=== PATIENT | female | born 1935 | race Caucasian/White ===

== ENCOUNTER 2017-12-12 13:31 | Inpatient (IN) | payer MEDICARE ==
[2017-12-12 14:16] LABS: #Eosinphils 0.2 thou/uL (0.0-0.7); #Monocytes 0.7 thou/uL (0.11-0.59); #Neutrophils 6.1 thou/uL (1.40-6.50); %Basophils 0.2 % (0.0-1.0); %Eosinophils 2.1 % (0.0-10.0); %Lymphocytes 12.6 % (21.0-51.0); %Monocytes 8.2 % (0.0-10.0); %Neutrophils 76.9 % (42.0-75.0); Hemoglobin 12.5 g/dL (12.0-16.0); Mean Corpuscular HGB CONC 32.9 g/dL (32.0-36.0); Mean Corpuscular Hemoglobin 29.5 pg (27.0-31.0); Mean Corpuscular Volume 89.6 fL (78.0-98.0); Mean Platelet Volume 9.2 fL (7.4-10.4); Platelet Count 137 thou/uL (130-400); RBC Distribution Width 13.2 % (11.5-14.5); Red Blood Cell (RBC) Count 4.25 mill/uL (4.20-5.40)
[2017-12-12 14:38] LABS: ALT (SGPT) 13 U/L (8-55); AST (SGOT) 16 U/L (5-34); Albumin 3.7 g/dL (3.4-4.8); Alkaline Phosphatase 71 U/L (40-150); Anion Gap 9 mmol/L (10-20); BUN (Urea Nitrogen) 18 mg/dL (9.8-20.1); Bilirubin, Total 0.8 mg/dL (0.2-1.2); Calc. Creatinine Clearance 0 mL/min (70-130); Calcium 8.6 mg/dL (7.8-10.44); Carbon Dioxide 20 mmol/L (23-31); Chloride 117 mmol/L (98-107); Estimated GFR-MDRD 58; Globulin 2.6 g/dL (2.4-3.5); Glucose 114 mg/dL (83-110); Protein, Total 6.3 g/dL (6.0-8.3); Sodium 143 mmol/L (136-145)
[2017-12-12 14:40] LABS: Potassium 2.7 mmol/L (3.5-5.1)
--- NOTE | 2017-12-12 14:46 | RAD ---
LEFT FEMUR TWO VIEWS: History: Fall. Pain. Comparison: None. FINDINGS: There is mild demineralization. No fracture. No cortical irregularity or periosteal reaction. IMPRESSION: Mild bone demineralization. No evidence of fracture. If the patient is unable to bear weight, conside r further interrogation with CT or MRI. POS: [facility]
--- NOTE | 2017-12-12 14:48 | RAD ---
FOUR VIEWS LEFT KNEE: History: Fall. Pain. Comparison: None. FINDINGS: There is diffuse bone demineralization. There is a bone fragement which appears to be adjacent to the medial distal femoral condyle. The possibility of a small avulsive injury cannot be excluded. There is a small suprapatellar effusion. Vascular calcifications are identified. IMPRESSION: Small avulsive injury involving the superior medial aspect of the medial distal femoral condyle. POS: [facility]
--- NOTE | 2017-12-12 14:50 | RAD ---
LEFT FEMUR TWO VIEWS: History: Fall. Pain. Comparison: None. FINDINGS: There is diffuse bone demineralization. Avulsive fracture fragment involving the superomedial aspect of the distal left femur, at the level of the medial femoral condyle. IMPRESSION: Avulsive fracture as above. POS: [facility]
[2017-12-12 14:59] LABS: Bilirubin Negative (Negative); Blood, Urine Negative (Negative); Clarity CLOUDY (Clear); Glucose, Urine (Dipstick) Negative (Negative); Leukocyte Trace (Negative); Nitrite Negative (Negative); Protein, Urine (Dipstick) 30 mg/dL (Neg-Trace); Urobilinogen 0.2 mg/dL (0.2-1.0); pH, Urine 7.5 (5.0-9.0)
[2017-12-12 15:00] LABS: Hyaline Casts/LPF 4-6 HYALINE CAST LPF (0-3 Hyaline); Pathc Cast-AUWi Flag 0.58 (0-2.49); RBC/HPF 0-3 HPF (0-3)
--- NOTE | 2017-12-12 15:00 | RAD ---
ONE VIEW CHEST: COMPARISON: 04/22/2011. HISTORY: Fall. Pain. FINDINGS: Atherosclerosis and elongation of the aorta. Normal cardiac silhouette. The pulmonary vessels and h ilum are normal. Costophrenic angles are clear. Lungs are hyperinflated with chronic changes. No c onsolidation or mass. No pneumothorax. No acute osseous abnormalities. There are chronic changes i nvolving the posterior right ribs. Stable internal fixation hardware projecting over the proximal le ft humerus. Stable vertebroplasty changes. IMPRESSION: Atherosclerosis. No acute cardiopulmonary process. POS: [facility]
[2017-12-12 15:18] LABS: Bacteria/HPF 4+ HPF (None Seen)
[2017-12-12 15:19] LABS: Crystals/HPF 1+ AMORPH PHOS HPF (Negative)
[2017-12-12] MEDS ORDERED: Potassium Chloride 20 MEQ in Premix Bag 1 BAG IVPB SCH (15:30)
--- NOTE | 2017-12-12 15:57 | CT ---
LEFT LOWER EXTREMITY CT SCAN WITHOUT IV COTNRAST: HISTORY: An 82-year-old female with a history of fall, left hip pain. COMPARISON: Left hip plain film, 12/12/2017. FINDINGS: There is diffuse bone demineralization. There is evidence of a very slightly comminuted minimally di splaced fracture through the base of the left femoral neck. IMPRESSION: Essentially nondisplaced very slightly comminuted fracture to the base of the femoral neck with sligh t comminution at the junction of the greater trochanter. Diffuse bone demineralization. No dislocat ion. POS: [facility]
[2017-12-12] MEDS ORDERED: traMADol HCl 50 MG TAB PO PRN (17:38)
[2017-12-12] MEDS ORDERED: Dextrose 50% Abboject 50 ML SYRINGE SLOW IVP PRN (17:38)
[2017-12-12] MEDS ORDERED: Dextrose 5% in Water 1,000 ML IV PRN (17:38)
[2017-12-12] MEDS ORDERED: Ondansetron PF 4 MG/2 ML Vial IVP PRN (17:38)
[2017-12-12] MEDS ORDERED: Sodium Chloride 0.9% 500 ML IV SCH (18:00)
[2017-12-12] MEDS: Acetaminophen 325 MG TAB PO SCH ×2 (19:03→21:55)
[2017-12-12] MEDS: traMADol HCl 50 MG TAB PO SCH (19:04)
[2017-12-12] MEDS: Ibuprofen 600 MG TAB PO SCH (19:04)
[2017-12-12] MEDS ORDERED: Simvastatin 20 MG TAB PO SCH (21:00)
[2017-12-12] MEDS: CEFAZOLIN 1 GM VIAL SLOW IVP SCH (21:43)
[2017-12-12] MEDS: Famotidine 20 MG TAB PO SCH (21:44)
--- NOTE | 2017-12-12 23:33 | HP ---
DATE OF SERVICE: 12/12/2017 Referred by the emergency department. TRAUMA ATTENDING: Dr. Homer Winslow who has evaluated the patient. HISTORY OF PRESENT ILLNESS: Ms. Posey is an 82-year-old female with a past medical history of CVA, essential tremor, bladder cancer with false bladder self caths whom stood up from her chair yesterday felt weak in her knees and fell to the floor. She was found in the morning by her and place d back in the chair and today she continued to have some left hip pain; therefore, she was referred t o the emergency department. In the emergency department, a chest x-ray was ultimately negative. Lef t hip x-ray was reported as negative, so CT hip was obtained that shows a left femoral neck fracture that is nondisplaced. A left knee x-ray shows an avulsion fracture of the distal femur medial side. The patient's pain has been controlled. She was noted to be hypokalemic with a potassium of 2.7. S he has been given 20 of IV and 20 of oral potassium. She is in no acute distress at this time. Dr. Romero with Orthopedic Surgery has been consulted and recommends operative repair in the morning a nd trauma admission. Therefore, the Trauma Service was consulted to admit the patient to the surgery olson. Upon arrival to the emergency department, the patient is lying supine in bed. She has no acute distr ess. She is hard of hearing. She denies any chest pain, shortness of breath, nausea, vomiting, any recent fever or syncope. The patient has a known history of hypokalemia, which she sees her primary care doctor for and they are up taking her potassium recently. The patient's family at the bedside a nd a lot of history is obtained from the family and the patient together. The patient does have some hip pain, but states that she is not needing further medication at this time. Her UA and I have rev iewed is positive for hyaline casts and bacteriuria. She has no feeling in her bladder and she has h ad recurrent UTIs in the past that she does straight catheterization; therefore, somewhat concern for an occult UTI. REVIEW OF SYSTEMS: Pertinent positive and negative per the HPI, otherwise is regarded as negative in 12-point review of systems. PAST MEDICAL HISTORY: 1. 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 2. Essential tremor. 3. 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 PAST SURGICAL HISTORY: A bladder resection, now self cathing; a lung resection secondary to metastas es greater than 10 years ago; and back surgery in the 1980s. ALLERGIES: SULFA. MEDICATIONS: Iron tab daily, Tylenol as needed, aspirin 81 mg daily, topiramate 25 mg as needed, sim vastatin 20 mg daily, docusate daily, potassium 20 mEq daily. FAMILY HISTORY: Noncontributory. SOCIAL HISTORY: The patient was exposed to secondhand smoke for many years, but not a primary smoker . No other tobacco, no alcohol, and no illicit drug use. She lives with her at [facility] but not assisted living. She is able to handle all of her own ADLs. PRIMARY CARE PHYSICIAN: Dr. Del Castillo. UROLOGIST: None. PHYSICAL EXAMINATION: VITAL SIGNS: Temperature is 98.2, blood pressure 165/85, heart rate is 76 and regular, breathing 24 times a minute. She is 95% on room air. GENERAL: This is an 82-year-old female supine in bed in no acute distress. HEENT: Normocephalic, atraumatic. Trachea is midline. NECK: No JVD is appreciated. Conjunctiva is normal. RESPIRATORY: Equal rise and fall. Bilateral breath sounds. Clear to auscultation upper and lower b ilaterally. No rubs or wheezes. CARDIOVASCULAR: Regular rate and rhythm. No murmurs are appreciated. No edema and strong pulses in 4 extremities. ABDOMEN: Soft, nontender. No masses, guarding, or rigidity appreciated. PELVIS: Has some pain to the left side at the hip. MUSCULOSKELETAL: Left hip pain, but positive sensation in 4 extremities including the left hip dista l with strong pulses noted in 4 extremities and no edema. SKIN: [place], warm and dry. NEUROLOGIC: Alert and oriented to person, place, time, and event. She is hard of hearing. PSYCHIATRIC: She is quiet, but normal mood and affect and at the patient's baseline. LABORATORY DATA: UA is positive for protein, positive for bacteriuria and positive for hyaline casts and white blood cells. Chemistry: Sodium is 143, potassium is 2.7, chloride is 117, CO2 is 20, BUN is 18 and a creatinine of 0.92, glucose is 114. Hemoglobin and hematocrit is 12.5 and 38.1, respect ively. White blood cell count 8 and platelets 137. DIAGNOSTIC RADIOLOGY: A left hip x-ray was reported as negative with osteopenia. Chest x-ray is neg ative other than osteopenia noted some scarring in the right without acute infiltrate, effusion or pn eumothorax. Left knee x-ray shows an avulsion fracture of the medial aspect of the distal femur and a left hip CT shows a left femoral neck fracture that is nondisplaced. ASSESSMENT: 1. Left femoral neck fracture. 2. Left distal femur medial avulsion fracture. 3. Hypokalemia. 4. History of cerebrovascular accident. 5. Bacteriuria with concern for urinary tract infection. 6. Possible dehydration. PLAN: 1. The patient will be admitted to the surgery olson. 2. Replace potassium by the emergency department. We will check a magnesium now. 3. Repeat BMP and CBC in the morning. 4. Pain control as needed. 5. Obtain a urine culture. 6. Ancef 1 gram IV push q.8 hours for now for occult UTI. 7. Catheterization as needed for urinary retention. 8. Continue home medication including simvastatin. 9. Orthopedic Surgery has been consulted, appreciate Dr. Romero's recommendations. 10. N.p.o. after midnight. 11. We will give 500 mL of fluid now. 12. Check CK. 13. Normal saline maintenance fluid starting at midnight tonight prior to surgery. 14. Diet: Diet will be regular diet until midnight and then will be n.p.o. except for sips of water for medications. 15. Activity: Bed rest. 16. Prophylaxis: Will be famotidine p.o. SCDs will hold. Chemical DVT prophylaxis until postopera tively. 17. Access for peripheral IVs. 18. FULL CODE. 19. Disposition: Surgery olson. I have updated the patient and the patient's family at the bedside, I have answered all questions and coordinate care with the emergency department physician, the nursing staff and this plan was discuss ed with Dr. Winslow and can be updated as needed.
--- NOTE | 2017-12-12 23:36 | CON ---
DATE OF CONSULTATION: 12/12/2017 CHIEF COMPLAINT: Left hip and knee pain. HISTORY OF PRESENT ILLNESS: Ms. Posey is an 82-year-old female who fell 2 nights ago. She was read ing when she arose to go to bed. She fell to the ground. She was unable to arise. She spent the ni ght on the ground. Her daughter did help her up and watched her for a day; however, she did not impr ove. She was unable to ambulate and unable to bear weight. She was taken to the Emergency [facility] for evaluation. X-rays were obtained, which demonstrated an injury to the medial condyle of her knee. CT scan has demonstrated a femoral neck fracture. She has been admitted to the hospital. She is currently resting comfortably. Pain is decreasing at this point. No other concerns. She no rmally ambulates around the house with a walker, but is somewhat unstable. Her is with her a nd lives with her independently. PAST MEDICAL HISTORY: Bladder cancer, hyperlipidemia, hypercholesterolemia, history of cerebrovascul ar accident. PAST SURGICAL HISTORY: Bladder surgery, lung surgery for tumor resection, oophorectomy. PSYCHIATRIC HISTORY: Negative. SOCIAL HISTORY: The patient denies tobacco, alcohol or drug use. REVIEW OF SYSTEMS: Positive for left hip and knee pain with motion, otherwise negative 10-point revi ew of systems. FAMILY MEDICAL HISTORY: Noncontributory. ALLERGIES: to SULFA. PHYSICAL EXAMINATION: VITAL SIGNS: Blood pressure is 144/102, pulse is 74, respiratory rate 18, temperature is 99.3, oxyge n saturation 96% on room air. GENERAL: She is lying supine, alert, talkative, in no apparent distress. HEENT: Normocephalic, atraumatic. RESPIRATORY: Breathing comfortably. ABDOMEN: Soft and nontender, nondistended. CARDIOVASCULAR: Pulse is palpable and regular peripherally. MUSCULOSKELETAL: The patient's left leg is slightly flexed at the knee. She does have tenderness ov er the medial condyle of the knee as well as a knee effusion, which is significant. She is tender ov er the joint line. She has significant valgus alignment of her knee. She has pain with hip motion a nd unable to do a straight leg raise. She has slight ecchymosis and swelling of the hip. IMAGING: CT scan and hip x-rays are reviewed. These demonstrate a minimally displaced femoral neck fracture and greater trochanteric fracture. It is difficult to see if this fully involves the medial calcar, although it is likely given the position. Knee x-rays demonstrate advanced osteoarthritis w ith valgus collapse and an avulsion from the medial epicondyle. IMPRESSION: Left femoral neck fracture and medial femoral condyle avulsion fracture in an elderly fe male. PLAN: At this point, the patient will need to go to the operating room tomorrow. We will plan for p ercutaneous screw fixation of the femoral neck fracture to stabilize the fracture and allow her to mo bilize with full weightbearing. Goal of surgery is early mobilization to prevent complications of pr olonged bed rest. Her family is aware of risks, which do include medical complications such as myoca rdial infarction, CVA, pneumonia and others as well as musculoskeletal complication including avascul ar necrosis, nonunion, malunion, hardware pain and others. She wants to proceed.
[2017-12-13] MEDS: traMADol HCl 50 MG TAB PO SCH ×5 (00:10→17:02)
[2017-12-13] MEDS: Ibuprofen 600 MG TAB PO SCH ×4 (00:10→18:22)
[2017-12-13] MEDS: Acetaminophen 325 MG TAB PO SCH ×5 (00:50→21:45)
[2017-12-13] MEDS: Sodium Chloride 0.9% 1,000 ML IV SCH ×2 (00:57→16:54)
[2017-12-13 05:24] LABS: #Eosinphils 0.2 thou/uL (0.0-0.7); #Lymphocytes 1.3 thou/uL (1.20-3.40); #Monocytes 0.8 thou/uL (0.11-0.59); %Basophils 0.3 % (0.0-1.0); %Eosinophils 2.6 % (0.0-10.0); %Lymphocytes 17.4 % (21.0-51.0); %Monocytes 10.6 % (0.0-10.0); %Neutrophils 69.2 % (42.0-75.0); Hemoglobin 11.3 g/dL (12.0-16.0); Mean Corpuscular HGB CONC 32.4 g/dL (32.0-36.0); Mean Corpuscular Hemoglobin 29.7 pg (27.0-31.0); Mean Corpuscular Volume 91.8 fL (78.0-98.0); Mean Platelet Volume 9.8 fL (7.4-10.4); Platelet Count 121 thou/uL (130-400); RBC Distribution Width 13.2 % (11.5-14.5); White Blood Cell (WBC) Count 7.3 thou/uL (4.8-10.8)
[2017-12-13 05:36] LABS: Anion Gap 6 mmol/L (10-20); BUN (Urea Nitrogen) 16 mg/dL (9.8-20.1); Calc. Creatinine Clearance 43 mL/min (70-130); Calcium 8.2 mg/dL (7.8-10.44); Carbon Dioxide 17 mmol/L (23-31); Chloride 122 mmol/L (98-107); Estimated GFR-MDRD 69; Glucose 96 mg/dL (83-110); Potassium 4.1 mmol/L (3.5-5.1); Sodium 141 mmol/L (136-145)
[2017-12-13] MEDS: CEFAZOLIN 1 GM VIAL SLOW IVP SCH ×2 (05:38→18:22)
[2017-12-13] MEDS ORDERED: Prevnar 13-Val Conj/PF 0.5 ML SYRINGE IM ONE (09:00)
[2017-12-13] MEDS ORDERED: CEFAZOLIN/Water 2 GM/20 ML SYRINGE SLOW IVP SCH (11:00)
[2017-12-13] MEDS ORDERED: CEFAZOLIN/Water 2 GM/20 ML SYRINGE ONE (13:32)
--- NOTE | 2017-12-13 14:19 | OP ---
DATE OF OPERATION: 12/13/2017 OPERATION: Left femoral neck fracture, percutaneous screw fixation. PREOPERATIVE DIAGNOSIS: Left nondisplaced femoral neck fracture. POSTOPERATIVE DIAGNOSIS: Left nondisplaced femoral neck fracture. COMPLICATIONS: None. ESTIMATED BLOOD LOSS: Minimal. SURGEON: Angelo Romero M.D. ANESTHESIA: General. IMPLANTS: Three 7.3 mm cannulated screws. INDICATIONS: Ms. Posey is an 82-year-old female who fell. She fractured the femoral neck of her le ft hip. She also had a small avulsion from her medial condyle of the knee. She has been indicated f or percutaneous screw fixation to restore stability of the femoral neck to allow early mobilization a nd prevent complications such as displacement or avascular necrosis. Risks have been reviewed in det ail. She has elected to proceed. DESCRIPTION OF PROCEDURE: Ms. Posey was identified in the preoperative holding area. Her correct e xtremity was marked. She was carried to the operating room. She was positioned supine. General ane sthesia was induced. A multidisciplinary timeout was performed. The left lower extremity was preppe d and draped in sterile fashion. We began the procedure with evaluation of the hip under intraoperative x-ray. We had a good reductio n of the femoral neck fracture. We identified an appropriate start point with an x-ray. We then mad e a small incision laterally. We inserted a guidewire in the inferior aspect of the femoral neck and head. We checked this on orthogonal planes. We then placed 2 additional guidewires in an inverted triangle pattern. Once we had appropriate positioning, we proceeded to measure our appropriate lengt h and then overdrilled the guidewires. At this point, we placed three 7.3 mm cannulated screws. We checked position once again. We then irrigated and closed our wound in layers. A sterile dressing w as applied. The patient was taken to the recovery room in good condition without complication at thi s point.
[2017-12-13] MEDS ORDERED: ePHEDrine/0.9% NaCl/PF SYRINGE 50 mg/10 ml ONE (14:43)
[2017-12-13] MEDS ORDERED: Promethazine HCl 25 MG/ML VIAL SLOW IVP PRN (16:08)
[2017-12-13] MEDS ORDERED: Ondansetron HCl/PF 4 MG/2 ML Vial IVP PRN (16:08)
[2017-12-13] MEDS ORDERED: Promethazine HCl 25 MG/ML VIAL IM PRN (16:08)
--- NOTE | 2017-12-13 16:11 | PRG ---
DATE OF SERVICE: 12/13/2017 SUBJECTIVE: The patient is hospital day #2 status post ground level fall in which she sustained a le ft femoral neck fracture. She is currently on the surgical floor, awaiting surgical procedure which is scheduled for today. Overnight, the patient has been n.p.o. She is tolerating her pain and has n o complaints at this time. OBJECTIVE: VITAL SIGNS: Temperature is 97.5, heart rate 55, blood pressure 158/77, respirations 14, oxygen satu ration 91% on room air. GENERAL: The patient is resting comfortably in bed. She is awake, alert, oriented and conversant. HEENT: Unremarkable. LUNGS: Clear to auscultation with good inspiratory and expiratory effort. HEART: Regular rate and rhythm. ABDOMEN: Soft, flat, nontender with active bowel sounds. Pelvis is stable. EXTREMITIES: The patient is tender to palpation in the left hip consistent with her fracture. She a lso is tender to palpation to her left knee, which also was consistent with a tiny avulsion fracture of her medial condyle. Extremities are otherwise neurovascularly intact. ASSESSMENT AND PLAN: 1. Status post ground level fall. 2. Left femoral neck fracture. 3. Left femur medial condyle fracture. PLAN: Will be to continue supportive care. Per Orthopedic consultation, she will have her hip repai r. Her knee will be treated nonoperatively. Postoperatively, we will have physical and occupational therapy to assess her and likely rehab consultation. The evaluation and examination were discussed with Dr. Winslow this morning.
[2017-12-13] MEDS: Famotidine 20 MG TAB PO SCH ×2 (18:23→20:17)
[2017-12-13] MEDS: Docusate 100 MG CAP PO SCH (20:16)
[2017-12-13] MEDS: Simvastatin 20 MG TAB PO SCH (20:17)
[2017-12-13] MEDS: Aspirin 81 mg Enteric Coated Tablet PO SCH (20:17)
[2017-12-13] MEDS: Topiramate 25 MG TAB PO SCH (20:18)
--- NOTE | 2017-12-13 21:07 | RAD ---
TWO IMAGES OF THE LEFT HIP 12/13/17 INDICATION: Left hip pinning. COMPARISON: Prior exam dated 12/12/17. FINDINGS: There has been interval percutaneous pinning of the nondisplaced basicervical femoral neck fracture. Fracture alignment is near anatomic. The instrumentation projects in the expected position. Total fl uoroscopic time of 37.7 seconds. Total exposure was 2.4 mGy. IMPRESSION: Percutaneous pinning of nondisplaced left basicervical femoral neck fracture. POS: [facility]
[2017-12-13] MEDS: CEFAZOLIN/Water 2 GM/20 ML SYRINGE SLOW IVP SCH (21:48)
[2017-12-14] MEDS: Ibuprofen 600 MG TAB PO SCH ×4 (01:08→17:34)
[2017-12-14] MEDS: Acetaminophen 325 MG TAB PO SCH ×5 (02:32→17:34)
[2017-12-14 05:08] LABS: #Lymphocytes 0.8 thou/uL (1.20-3.40); #Monocytes 0.5 thou/uL (0.11-0.59); #Neutrophils 8.6 thou/uL (1.40-6.50); %Basophils 0.4 % (0.0-1.0); %Eosinophils 0.3 % (0.0-10.0); %Lymphocytes 7.9 % (21.0-51.0); %Monocytes 5.3 % (0.0-10.0); %Neutrophils 86.1 % (42.0-75.0); Hemoglobin 11.5 g/dL (12.0-16.0); Mean Corpuscular HGB CONC 31.1 g/dL (32.0-36.0); Mean Corpuscular Hemoglobin 29.3 pg (27.0-31.0); Mean Corpuscular Volume 94.2 fL (78.0-98.0); Mean Platelet Volume 9.3 fL (7.4-10.4); Platelet Count 137 thou/uL (130-400); RBC Distribution Width 13.4 % (11.5-14.5); Red Blood Cell (RBC) Count 3.93 mill/uL (4.20-5.40)
[2017-12-14 05:22] LABS: Anion Gap 13 mmol/L (10-20); BUN (Urea Nitrogen) 17 mg/dL (9.8-20.1); Calc. Creatinine Clearance 41 mL/min (70-130); Calcium 8.4 mg/dL (7.8-10.44); Carbon Dioxide 12 mmol/L (23-31); Chloride 124 mmol/L (98-107); Estimated GFR-MDRD 65; Glucose 81 mg/dL (83-110); Magnesium 1.8 mg/dL (1.6-2.6); Phosphorus 3.7 mg/dL (2.3-4.7); Potassium 3.7 mmol/L (3.5-5.1); Sodium 145 mmol/L (136-145)
[2017-12-14] MEDS: traMADol HCl 50 MG TAB PO SCH ×3 (05:24→17:35)
[2017-12-14] MEDS: CEFAZOLIN/Water 2 GM/20 ML SYRINGE SLOW IVP SCH (05:27)
[2017-12-14] MEDS: Sodium Chloride 0.9% 1,000 ML IV SCH ×2 (06:17→15:08)
[2017-12-14] MEDS: Ferrous Sulfate 325 MG TAB PO SCH (08:25)
[2017-12-14] MEDS: Multivit, Therapeutic 1 TAB PO SCH (08:25)
[2017-12-14] MEDS: Potassium Chloride 20 MEQ TAB PO SCH (08:25)
[2017-12-14] MEDS: Docusate 100 MG CAP PO SCH ×2 (08:25→19:33)
[2017-12-14] MEDS: Topiramate 25 MG TAB PO SCH ×2 (09:52→19:34)
[2017-12-14] MEDS ORDERED: Iopamidol 370 76% 100 ML VIAL ONE (10:02)
[2017-12-14] MEDS ORDERED: ISOVUE-370 76%-LOCM 1 ML ONE (10:03)
[2017-12-14 10:56] LABS: BHCG - Serum Negative (NEGATIVE); Pregs Control Background? CLEAR/WHITE (CLR/WHITE); Pregs Control Bar Appear? YES (CONTROL BAR)
[2017-12-14 11:00] LABS: INR-International Normal Ratio 1.1; PTT 28.6 SEC (22.9-36.1); Prothrombin Time 14.3 SEC (12.0-14.7)
[2017-12-14 11:16] LABS: CKMB 3.2 ng/mL (0-6.6); Troponin I 0.036 ng/mL (< 0.028)
--- NOTE | 2017-12-14 11:23 | CT ---
HEAD CT NONCONTRAST: INDICATION: Acute onset right facial droop, right side paralysis/hemiparesis. COMPARISON: Reference is made to a prior brain MRI of 03/30/2011. FINDINGS: There is a partially calcified large extraaxial mass overlying the right frontal convexity indicative of meningioma with adjacent vasogenic edema and mass effect with slight effacement of the right fron cristina horn. This mass was depicted on prior brain MRI, and has enlarged in the interim, measuring 3.2 cm transverse. There is a hyperdense left MCA which is indicative of calcified thrombus, the acuity of which is not ascertained further on the basis of this exam. There is extensive white matter hypoattenuation indic ative of moderate to severe chronic ischemic disease. Focal region of encephalomalacia at the left t emporoparietal region is present. IMPRESSION: 1. Hyperdense left middle cerebral artery. 2. No acute hemorrhage. 3. Partially calcified right frontal meningioma with associated mass effect. Mass has enlarged from brain MRI in March 2011. Telephone call placed to KOFFI Hernnadez at the time of interpretation 1036 hours 12/14/2017. CODE CR POS: [facility]
--- NOTE | 2017-12-14 11:30 | CT ---
CTA NECK WITH CONTRAST AND 3D VOLUME RENDERING CTA HEAD WITH CONTRAST AND 3D VOLUME RENDERING: INDICATION: Acute onset right side weakness. COMPARISON: Reference is made to preceding noncontrast head CT. FINDINGS: There is abnormal truncation of contrast at the level of the proximal left M1 segment compatible with thrombus which corresponds to the hyperdense MCA on the preceding head CT. Otherwise, there is mild scattered vascular calcification of the major arterial system of the head and neck without additiona l sites for occlusion or high-grade stenosis. There is a dominant right vertebral artery with a diff use small caliber of the left vertebral artery. Basilar artery is patent, and small in caliber. There is a redemonstrated anterior right frontal convexity meningioma with associated calcification a nd enhancement. Mass effect from the meningioma is present with effacement of the frontal horn of th e right lateral ventricle. IMPRESSION: 1. Acute left M1 thrombus. 2. Mild scattered vascular disease otherwise demonstrated. 3. Prominent-sized right frontal convexity meningioma. A telephone call placed of findings placed to KOFFI Erickson, as well as to neurosurgeon Dr. Dmitry vázquez at 1058 hours 12/14/2017. CODE CR POS: [facility]
[2017-12-14] MEDS ORDERED: hydrALAZINE 20 MG/ML VIAL ONE (11:36)
[2017-12-14] MEDS ORDERED: Fentanyl 100 MCG/2 ML VIAL ONE (11:36)
[2017-12-14] MEDS ORDERED: Heparin 10,000 UNITS/1 ML VIAL ONE ×2 (11:37→11:41)
[2017-12-14] MEDS ORDERED: Lidocaine 1% (PF) 30 ML VIAL ONE (11:41)
[2017-12-14] MEDS ORDERED: Labetalol HCl 100 MG/20 ML VIAL SLOW IVP PRN (13:00)
[2017-12-14] MEDS ORDERED: niCARdipine HCl 25 MG in Sodium Chloride 0.9% 250 ML 240 ML IVPB PRN (13:00)
--- NOTE | 2017-12-14 13:18 | PRG ---
DATE OF SERVICE: 12/14/2017 SUBJECTIVE: Ms. Posey underwent a reparative surgery for hip fracture yesterday. She was working with physical therapy today when she developed altered level of consciousness and dense right hemiparesis with associated aphasia. She underwent a noncontrast head CT which shows evidence of a meningioma, but also what appears to be thrombus within the left M1 branch of the middle cerebral artery. She is not a candidate for tPA given her recent history of major surgery. We will bring her down to the angiogram suite for angiography and mechanical thrombectomy. BETHANY
[2017-12-14] MEDS ORDERED: SUGAMMADEX SODIUM 200 MG/2 ML VIAL ONE (13:46)
[2017-12-14] MEDS ORDERED: SUGAMMADEX SODIUM 500 MG/5 ML VIAL ONE (13:49)
--- NOTE | 2017-12-14 14:15 | PRG ---
DATE OF SERVICE: 12/14/2017 SUBJECTIVE: Ms. Posey underwent successful mechanical thrombectomy. She has congregational of flow no w into the left hemisphere. She will return to the ICU. She was intubated during the procedure, but we will work towards extubat ion. She will have a groin site, which will need to monitor. She needs to stay flat for 2 hours aft er the procedure. She will need to maintain a systolic pressure less than 180. I have ordered a rou sissy head CT for tomorrow morning. She will need to undergo additional risk stratification for aruna vázquez. I have updated the family. She will also need to be n.p.o. until she can successfully pass a nicolás estevez evaluation.
[2017-12-14] MEDS ORDERED: Ondansetron PF 4 MG/2 ML Vial ONE (15:30)
[2017-12-14] MEDS ORDERED: Glycopyrrolate 0.2 MG/ML 5 ML SYRINGE ONE (15:30)
[2017-12-14] MEDS ORDERED: ePHEDrine/0.9% NaCl/PF SYRINGE 50 mg/10 ml ONE (15:30)
[2017-12-14] MEDS ORDERED: Esmolol 100 MG/10 ML VIAL ONE (15:30)
[2017-12-14] MEDS ORDERED: Lidocaine 1% PF 5 ML VIAL ONE (15:30)
[2017-12-14] MEDS ORDERED: PHENYLEPHRINE-NS 100 MCG/ML 10 ML SYRINGE ONE (15:30)
[2017-12-14] MEDS ORDERED: PROPOFOL 200 MG/20 ML VIAL ONE (15:30)
--- NOTE | 2017-12-14 16:17 | PRG ---
DATE OF SERVICE: 12/14/2017 SUBJECTIVE: The patient is hospital day #2, postop day #1, status post ground level fall in which anastasia vázquez sustained a left hip fracture. Yesterday, she underwent percutaneous screw fixation of her fractur e. She tolerated this procedure well. This morning, she has not yet started working with physical a nd occupational therapy. She has not had breakfast yet this morning. She was asleep when I entered the room, but she awakened with gentle verbal stimuli and stated that her pain was controlled. PHYSICAL EXAMINATION: VITAL SIGNS: Temperature 98.1, heart rate 83, blood pressure 143/76, respirations 18, oxygen saturat ion 92% on room air. GENERAL: The patient is resting comfortably in bed. Again, she was asleep when I arrived in the karey m, but awake into a gentle verbal stimuli and she appeared to be appropriate. LUNGS: Clear to auscultation with moderate inspiratory and expiratory effort. HEART: Regular rate and rhythm. ABDOMEN: Soft, flat, nontender with hypoactive bowel sounds. EXTREMITIES: Neurovascularly intact x4. Postop dressing is clean, dry, and intact. LABORATORY DATA AND IMAGING DATA: White blood cell count 10.0, hemoglobin 11.5, hematocrit 37.0, linda telets 137. Sodium 145, potassium 3.7, chloride 124, CO2 12, BUN 17, creatinine 0.84, glucose 81, ma gnesium 1.8, phosphorus 3.7. There are no radiographs to review this morning. ASSESSMENT AND PLAN: 1. Status post ground level fall. 2. Status post percutaneous screw fixation of left hip fracture. Plan will be to continue supportive care, physical and occupational therapy and await placement decis ion.
[2017-12-14] MEDS ORDERED: Acetaminophen 1,000 MG in Premix Bag 1 BAG IVPB SCH (17:30)
[2017-12-14] MEDS: Aspirin 81 mg Enteric Coated Tablet PO SCH (19:32)
[2017-12-14] MEDS: Simvastatin 20 MG TAB PO SCH (19:34)
[2017-12-14] MEDS: Famotidine 20 MG TAB PO SCH (19:34)
[2017-12-14] MEDS ORDERED: Acetaminophen 80 MG Suppository PR SCH (21:00)
[2017-12-15] MEDS: Ibuprofen 600 MG TAB PO SCH ×4 (00:39→17:02)
[2017-12-15] MEDS: traMADol HCl 50 MG TAB PO SCH ×4 (00:39→17:02)
[2017-12-15] MEDS: Acetaminophen 325 MG TAB PO SCH (00:39)
[2017-12-15 04:56] LABS: #Lymphocytes 0.6 thou/uL (1.20-3.40); #Monocytes 0.7 thou/uL (0.11-0.59); #Neutrophils 8.8 thou/uL (1.40-6.50); %Basophils 0.1 % (0.0-1.0); %Eosinophils 0.5 % (0.0-10.0); %Lymphocytes 6.2 % (21.0-51.0); %Monocytes 6.4 % (0.0-10.0); %Neutrophils 86.9 % (42.0-75.0); Hemoglobin 10.1 g/dL (12.0-16.0); Mean Corpuscular HGB CONC 31.9 g/dL (32.0-36.0); Mean Corpuscular Hemoglobin 29.4 pg (27.0-31.0); Mean Platelet Volume 9.8 fL (7.4-10.4); Platelet Count 131 thou/uL (130-400); RBC Distribution Width 13.6 % (11.5-14.5); Red Blood Cell (RBC) Count 3.45 mill/uL (4.20-5.40); White Blood Cell (WBC) Count 10.1 thou/uL (4.8-10.8)
[2017-12-15 05:14] LABS: Anion Gap 7 mmol/L (10-20); BUN (Urea Nitrogen) 15 mg/dL (9.8-20.1); Calc. Creatinine Clearance 40 mL/min (70-130); Calcium 8.3 mg/dL (7.8-10.44); Carbon Dioxide 15 mmol/L (23-31); Cardiac Risk 2.6 (Less than 4.5); Chloride 129 mmol/L (98-107); Cholesterol 92 mg/dl (< 200 Desired); Estimated GFR-MDRD 62; Glucose 123 mg/dL (83-110); HDL Cholesterol 36 mg/dL (>60 Neg Risk); LDL Cholesterol, Calculated 39 mg/dL; Magnesium 1.7 mg/dL (1.6-2.6); Phosphorus 2.4 mg/dL (2.3-4.7); Potassium 3.4 mmol/L (3.5-5.1); Sodium 148 mmol/L (136-145); Triglycerides 84 mg/dL (Less than 150)
[2017-12-15 05:15] LABS: Cocaine Metabolite Screen Not Detected (NotDetected); Medtox Reader # READER 4; Phencyclidine (PCP) Not Detected (NotDetected); THC/Cannabinoid Screen Not Detected (NotDetected)
[2017-12-15 05:16] LABS: Amphetamine Not Detected (NotDetected); Barbiturates Screen Not Detected (NotDetected); Benzodiazepine Screen Not Detected (NotDetected); Medtox Control Line Valid? VALID (VALID); Methadone Not Detected (NotDetected); Methamphetamine Detected (NotDetected); Opiate Screen Not Detected (NotDetected); Oxycodone Screen Not Detected (NotDetected); Tricyclic Screen Not Detected (NotDetected)
[2017-12-15] MEDS ORDERED: Magnesium Sulfate 3 GM in Sodium Chloride 0.9% 250 ML 250 ML IVPB SCH (07:00)
[2017-12-15] MEDS: D5 1/2 NS w/20 mEq KCL 1,000 ML IV SCH (07:02)
--- NOTE | 2017-12-15 08:03 | CT ---
PRELIMINARY REPORT/[facility]/EMERGENTY AFTER-HOURS PROCEDURE CT Head Without Intravenous Contrast CLINICAL HISTORY: 82 years old, female; Condition or disease; Other: CVA; Prior surgery; Surgery date: Post-operative ( 0-2 days); Surgery type: Thrombectomy; Patient HX: F/u CVA TECHNIQUE: Axial computed tomography images of the head/brain without intravenous contrast. COMPARISON: CT Brain WO Con 12/14/2017 10:34 AM FINDINGS: Interval development of left temporal lobe and posterior parietal hemorrhages with diffuse surroundin g edema effacing the sulci, sylvian fissure and left lateral ventricle resulting in 7 mm midline shif t to the right. Mild medial deviation of the uncus on the left but the basal cistern and foramen magn um are patent. Large calcified mass in the right frontal lobe measuring approximately 3.3 x 1.9 cm with surrounding vasogenic edema, unchanged. Orbits are unremarkable. Paranasal sinuses are clear. Mastoid air cells are clear. No acute fracture. Soft tissues unremarkable. IMPRESSION: 1. Interval development of left temporal lobe and posterior parietal hemorrhages with diffuse surroun ding edema effacing the sulci, sylvian fissure and left lateral ventricle resulting in 7 mm midline s hift to the right. Mild medial deviation of the uncus on the left but the basal cistern and foramen m agnum are patent. 2. Large calcified mass in the right frontal lobe measuring approximately 3.3 x 1.9 cm with surroundi ng vasogenic edema, unchanged. THIS REPORT CONTAINS FINDINGS THAT MAY BE CRITICAL TO PATIENT CARE. The findings were verbally commun icated via telephone conference with KOFFI Murillo at 5:34 AM CDT on 12/15/2017. The findings were ack nowledged and understood. Thank you for allowing us to participate in the care of your patient. Dictated and Authenticated by: Francisco Lainez MD 12/15/2017 5:38 AM Central Time ([place] & [place]) FINAL REPORT NONCONTRAST HEAD CT: COMPARISON: 12/14/2017. HISTORY: CVA. Left M1 thrombus. FINDINGS: This report is in agreement with the preliminary report by [facility]. There is evidence of interval intrac ranial hemorrhage involving the left temporal and parietal lobes. There is evidence of left MCA dist ribution edema. There is left to right subfalcine herniation with associated midline shift. Stable calcified mass in the right frontal region with associated vasogenic edema. Subtle hyperdensities in the medial aspect of the right temporal lobe may represent calcified choroid plexus. A component of hemorrhage cannot be completely excluded. POS: [facility]
[2017-12-15 08:15] VITALS: BMI 20.7
[2017-12-15] MEDS: Multivit, Therapeutic 1 TAB PO SCH (08:47)
[2017-12-15] MEDS: Topiramate 25 MG TAB PO SCH ×2 (08:47→21:12)
[2017-12-15] MEDS: Ferrous Sulfate 325 MG TAB PO SCH (08:47)
[2017-12-15] MEDS: Potassium Chloride 20 MEQ TAB PO SCH (08:47)
[2017-12-15] MEDS: Docusate 100 MG CAP PO SCH ×2 (08:47→21:10)
--- NOTE | 2017-12-15 09:57 | PRG ---
DATE OF SERVICE: 12/15/2017 SUBJECTIVE: I connected with Ms. Posey's family and spoke about prognosis this morning. We spent a bout 25 minutes in the conference room and discussed in it. There are two daughters, son-in-law and a present. On completion of the discussion, Ms. Posey's family is considering their options of being aggressive in proceeding with craniectomy and eventual tracheostomy and gastrostomy in senior living placement. On the other hand, they are heavily considering the idea of making her comfortable and using comfort care only going forward and avoiding any intubation, chest compressions or cardiac defibrillation. If they decide for the latter (comfort measures), we will make her DNR and DNI and consult the [facility] comfort care team and if they want to be aggressive, we will be ready for a craniectomy. I bel ieve the swelling will get worse over the next 48 hours.
--- NOTE | 2017-12-15 09:58 | PRG ---
DATE OF SERVICE: 12/15/2017 I personally examined the patient, reviewed imaging and records, and agree with documentation of Xiang Bonds PA-C., dated 12/15/2017. Briefly, Lucie Posey is an 82-year-old woman, who came to our hospital after a fall at home resultin g in hip fracture. She had that fracture fixed. Yesterday, working with physical therapy, she began acutely aphasic and the mental status deteriorated rapidly. CT angiography of the brain revealed a thrombus at the M1 segment of the middle cerebral artery on the left side. In the past, she has had a stroke affecting speech, but had recovered reasonably well from it and became independent for activ ities of daily living. This thrombus was significant and prompted an attempt at thrombectomy. She i s not a candidate for TPA given the recent hip surgery. A followup serial CT scan was done this morning per protocol. She has a right frontal meningioma trina t is unchanged from prior imaging. She has a small amount of hemorrhagic conversion of the left MCA infarct, which is a risk of the procedure. The amount of blood is quite small. However, this shift is significant meaning that the stroke is starting to swell. Early swelling soon after a stroke port ends a bad outcome. Left MCA perfuses regions of the brain intimately involving communication and co ntrol the right side of the body. This amount of swelling would indicate a large MCA infarct. In general, I am very hesitant to perform a decompressive craniectomy and a left MCA infarct, given t he amount of neurological dysfunction that is unretrievable. If the family wants to push ahead with aggressive management, we can use mannitol for a day or so, but I think that we are going to end up w ith a decompressive craniectomy eventually if that is the decision they choose. Therefore, we will p char for that to happen today, but I have been unable to contact the family to discuss it. If, on the other hand, the family is adamant that Ms. Posey would not want to live in a state in which she was completely dependent for activities of daily living and unable to communicate, then we will hold off on intervention and not treat the swelling of the stroke. This will result most likely in neurologi rafaela deterioration over the next 2-3 days and succumb into the infarct.
--- NOTE | 2017-12-15 14:13 | PRG ---
DATE OF SERVICE: 12/15/2017 SUBJECTIVE: Patient is hospital day #3, postop day #2, status post ground level fall in which she bullard stained a left hip fracture. She underwent percutaneous screw fixation and tolerated this procedure well. Yesterday unfortunately, while working with physical therapy, she suffered a significant embol ic stroke. She was taken to the photo lab specialist and had an embolectomy done by Dr. Vora this morning. CT unfortunately showed perfusion bleed with significant swelling. Dr. Mesa spoke with the family regarding her prognosis and treatment options which included a craniotomy in which discussion by the family with me, the family decided they would not pursue that and would prefer going with comfort mathew sures. PHYSICAL EXAMINATION: VITAL SIGNS: Temperature is 98.4, heart rate 79, blood pressure 147/87, respirations 22, oxygen satu ration is 93% on 2 liters via nasal cannula. GENERAL: The patient appears to be resting comfortably in bed asleep with loud verbal stimuli. She will open her eyes weakly and does not follow commands and is nonverbal. LUNGS: Clear to auscultation with moderate inspiratory and expiratory effort. HEART: Regular rate and rhythm. ABDOMEN: With hypoactive bowel sounds. EXTREMITIES: Capillary refill is less than 3 seconds. Pulses are 2+. LABORATORY DATA: White blood cell count 10.1, hemoglobin 10.1, hematocrit 31.7, platelets 131. Sodi um 148, potassium 3.4, chloride 129, CO2 15, BUN 15, creatinine 0.87, glucose 123, magnesium 1.7, gricel sphorus 2.4. RADIOGRAPHIC FINDINGS: CT of the brain without contrast shows interval development of left temporal lobe and posterior parietal hemorrhages with diffuse surrounding edema facing the sulci, sylvian fiss ure and left lateral ventricle, resulting in a 7 mm midline shift to the right. A mild medial deviat ion of the uncus on the left, but the basal cistern and foramen magnum are patent. ASSESSMENT AND PLAN: 1. Status post ground level fall. 2. Status post percutaneous screw fixation of hip fracture. 3. Status post cerebrovascular accident with reperfusion bleed and edema. Plan will be to pursue comfort measures per the family's wishes. We will contact palliative care and plan for inpatient hospice. The evaluation, examination, laboratory and radiographic findings will be discussed with Dr. Winslow after this dictation.
[2017-12-15] MEDS ORDERED: Aspirin 300 MG Suppository PR SCH (21:00)
[2017-12-15] MEDS: Famotidine 20 MG TAB PO SCH (21:11)
[2017-12-15] MEDS: Simvastatin 20 MG TAB PO SCH (21:11)
[2017-12-16] MEDS: D5 1/2 NS w/20 mEq KCL 1,000 ML IV SCH ×3 (01:34→23:27)
[2017-12-16] MEDS: traMADol HCl 50 MG TAB PO SCH ×5 (01:35→23:27)
[2017-12-16] MEDS: Ibuprofen 600 MG TAB PO SCH ×4 (01:35→23:27)
[2017-12-16 06:01] LABS: Anion Gap 11 mmol/L (10-20); BUN (Urea Nitrogen) 10 mg/dL (9.8-20.1); Calc. Creatinine Clearance 45 mL/min (70-130); Calcium 8.5 mg/dL (7.8-10.44); Carbon Dioxide 15 mmol/L (23-31); Chloride 123 mmol/L (98-107); Estimated GFR-MDRD 73; Glucose 244 mg/dL (83-110); Magnesium 2.1 mg/dL (1.6-2.6); Phosphorus 1.3 mg/dL (2.3-4.7); Potassium 2.6 mmol/L (3.5-5.1); Sodium 146 mmol/L (136-145)
[2017-12-16 06:35] LABS: Band 14 % (5-11); Hemoglobin 12.6 g/dL (12.0-16.0); Lymphocytes 3 % (21-51); MDiff Complete? YES; Mean Corpuscular HGB CONC 32.3 g/dL (32.0-36.0); Mean Corpuscular Hemoglobin 29.1 pg (27.0-31.0); Mean Corpuscular Volume 90.1 fL (78.0-98.0); Mean Platelet Volume 9.6 fL (7.4-10.4); Monocytes 6 % (0-10); Neutrophil 77 % (42-75); PLT Morphology Comment Appears Adequate; Platelet Count 191 thou/uL (130-400); RBC Distribution Width 13.7 % (11.5-14.5); RBC Morphology Normal; Red Blood Cell (RBC) Count 4.33 mill/uL (4.20-5.40)
[2017-12-16] MEDS ORDERED: Potassium Phosphate 30 MMOL in Sodium Chloride 0.9% 250 ML 250 ML IVPB SCH (07:00)
--- NOTE | 2017-12-16 07:14 | PRG ---
DATE OF SERVICE: 12/16/2017 I stopped by Lucie Posey's room. Her daughter was in the room sitting at bedside. They have electe d to make her comfortable. She has been made DNR and DNI. Our Neurosurgery team will sign off.
--- NOTE | 2017-12-16 07:31 | HP ---
HISTORY OF PRESENT ILLNESS: Ms. Posey was brought to the emergency department on 12/12/2017 for a f all. She was found to have a left femoral neck fracture, which was repaired by Dr. Romero. The p atient seemed to be progressing well following surgery on the . Yesterday, she was performing ph ysical therapy and when they got her back into bed, they noticed some aphasia. The patient was taken to CT where a thrombus was found in the left M1. Dr. Vora was called in to do a thrombectomy zhen maher PPA was contraindicated due to her recent surgery. Neurosurgery was consulted this morning shoaib kathie there was a hemorrhage involving her left temporal and parietal lobes. There is also significant e caroline in the left MCA area. There is a stable calcified mass in the right frontal. As I entered the patient's room, she is resting in the hospital bed. She is on oxygen. She does not open her eyes to my voice or stimulus. She is breathing somewhat labored, otherwise does not seem to be in any pain. The patient is moving all 4 extremities. REVIEW OF SYSTEMS: Unable to obtain review of systems. The patient is nonresponsive. PAST MEDICAL HISTORY: Bladder cancer, met on lung, hyperlipidemia, high triglycerides, neurological disease, ischemic cerebrovascular accident. PAST SURGICAL HISTORY: Artificial bladder. She self caths. Cancer removed from the lung, oophorect gloria of the left ovary and left hip surgery. SOCIAL HISTORY: The patient denies use of alcohol, tobacco or any other illicit drugs. She is marri ed and lives with her . FAMILY HISTORY: Noncontributory. ALLERGIES: SULFA. MEDICATIONS: Vitamin D3, potassium, simvastatin, ferrous sulfate, tacrolimus, Dulcolax sodium and a spirin. PHYSICAL EXAMINATION: VITAL SIGNS: Heart rate 91, blood pressure 149/79, respirations 23, O2 sats 97%. CONSTITUTIONAL: The patient is breathing, slightly labored. She is nonresponsive to my voice. She is moving all 4 extremities, localizing to pain. She does not make any sounds. She is nontoxic appe aring. Does not appear to be in any pain. HEENT: Head normocephalic, atraumatic. Pupils are equal, round, and reactive to light. Moist mucou s membranes. RESPIRATORY: Normal work of breathing on room air, however, somewhat labored. Normal expansio n and equal chest rise bilaterally. CARDIOVASCULAR: Regular rate and rhythm. Normal S1 and S2. NEUROLOGIC: GCS of 7. Eyes will not open, 1. No verbal response, 1. Motor: She was previously lo calizing to painful stimuli. Pupils are equal, round, and reactive. She is breathing on her own. Co rneal reflexes and gag reflexes are present. Moving all [address] of the head, there is evidence of intracranial hemorrhage involving the left temporal and parietal lobes. There is evidence of left MCA distribution and edema and left to right subfalcine herniation with associated midline shift. Stable calcified mass in the right frontal region with associated va sogenic edema. ASSESSMENT AND PLAN: Ms. Posey is an 82-year-old female who was brought into the emergency room for hip fracture which was repaired and then 2 days later, she sustained a stroke which was Dr. Vora at tempted to repair following the procedure, the patient had an associated intracranial hemorrhag e, however, there is substantial edema from the stroke. The family has been appraised of the situati on and is up to them to decide if they want to move forward with craniectomy or decompression or comf ort measures.
[2017-12-16] MEDS: Ferrous Sulfate 325 MG TAB PO SCH (09:00)
[2017-12-16] MEDS: Docusate 100 MG CAP PO SCH ×2 (09:00→22:17)
[2017-12-16] MEDS: Multivit, Therapeutic 1 TAB PO SCH (09:01)
[2017-12-16] MEDS: Potassium Chloride 20 MEQ TAB PO SCH (09:01)
[2017-12-16] MEDS: Topiramate 25 MG TAB PO SCH ×2 (09:01→22:17)
--- NOTE | 2017-12-16 16:48 | PRG ---
DATE OF SERVICE: 12/16/2017. SUBJECTIVE: The patient was admitted 4 days previously following a fall resulting in a hip fracture. Postoperatively, the patient had developed acute stroke which required intervention. She subsequently developed acute hemorrhagic conversion of the ischemic stroke. She is in coma now. Family had elected to pursue comfort care measures only, which requires no CPR or intubation. They do so knowing that this will certainly lead to her demise. OBJECTIVE: GENERAL: The patient appears to be in no acute distress this morning. Janice coma scale is noted at E2 M4 V1. VITAL SIGNS: Included blood pressure 160/93, pulse 97, respiratory rate is 40 and shallow, oxygen saturation is 100% by nonrebreather mask. HEENT: Pupils are equally round and reactive to light at 3 mm bilaterally. HEART: Reveals regular rate and rhythm. No murmurs or gallops auscultated. LUNGS: Tachypneic but unlabored. ABDOMEN: Soft, nontender, nondistended. EXTREMITIES: With 2+ radial and pedal pulses bilaterally. LABORATORY DATA: Today includes a CBC with 21,000 white blood cells, hemoglobin and hematocrit 12.6 and 39.0 respectively. Platelet count is 191, 000. Metabolic Profile: Sodium 146, potassium is 2.6, chloride is 123, bicarbonate is 15, BUN is 10, creatinine 0.76, glucose is 244, phosphorus is 1.3 , magnesium is 2.1. IMPRESSION: 1. Acute post-traumatic ischemic stroke. 2. Acute hemorrhagic conversion of the stroke. 3. Acute hypokalemia. 4. Acute hypophosphatemia. 5. Acute hyperchloremic metabolic acidosis. 6. Acute hypernatremia. PLAN: Patient's family have elected comfort care measures at this time with a bit towards hospice care. There is no further indication for any operative or aggressive critical care management of this patient. We will convert to comfort care at this time. Pain medications will be provided as needed. I have discussed the above with the patient's at bedside. He indicates understanding of information given. The patient's elder daughter and power of title attorney was not at bedside during this visit. I will attempt to visit with her again later today. BETHANY
[2017-12-16] MEDS ORDERED: Potassium Chloride 40 MEQ in Sodium Chloride 0.9% 250 ML 250 ML IVPB SCH (19:00)
[2017-12-16] MEDS: Simvastatin 20 MG TAB PO SCH (22:17)
[2017-12-16] MEDS: Famotidine 20 MG TAB PO SCH (22:17)
[2017-12-16] MEDS: Sodium Chloride 0.9% 1,000 ML IV SCH (22:19)
[2017-12-17] MEDS: traMADol HCl 50 MG TAB PO SCH ×2 (01:46→14:29)
[2017-12-17] MEDS: Ibuprofen 600 MG TAB PO SCH ×2 (01:46→14:29)
[2017-12-17] MEDS: D5 1/2 NS w/20 mEq KCL 1,000 ML IV SCH (03:50)
[2017-12-17] MEDS: Docusate 100 MG CAP PO SCH (08:47)
[2017-12-17] MEDS: Topiramate 25 MG TAB PO SCH (08:48)
[2017-12-17] MEDS: Potassium Chloride 20 MEQ TAB PO SCH (08:48)
[2017-12-17] MEDS: Multivit, Therapeutic 1 TAB PO SCH (08:48)
[2017-12-17] MEDS: Ferrous Sulfate 325 MG TAB PO SCH (08:48)
[2017-12-17 11:20] VITALS: BP 102/56; TEMP 98.5
--- NOTE | 2017-12-17 23:59 | DS ---
DATE OF ADMISSION: 12/12/2017 DATE OF : 12/17/2017 ADMISSION DIAGNOSES: 1. Status post ground level fall. 2. Status post percutaneous screw fixation of hip fracture. 3. Status post ischemic cerebrovascular accident with reperfusion bleed and edema. SUMMARY OF HOSPITAL COURSE: The patient is an 82-year-old woman who was admitted to the hospital aft er a fall in which she sustained a hip fracture. The following day, she underwent percutaneous screw fixation of this hip, which she tolerated well. 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 She was taken emergently to the CT scanner , which showed a large clot, which she was then emergently taken to the phlebotomy lab assistant for embolectomy. Zenon vázquez had minimal neuro status changes after her embolectomy and the following day, it was noted on her r epeat head CT that she had a reperfusion bleed and edema. The family was counseled on the next step would be a possible craniotomy, but due to her advanced age and the size of the stroke, her chance of having a meaningful recovery were very minimal. The family decided at that time to withhold surgica l intervention and would have a family discussion as to what they would do. On the date of , elsa vázquez family had decided to remove her oxygen and make her comfort care only. Once the oxygen was remove d approximately 2 hours later she quietly passed.
--- NOTE | 2017-12-21 10:59 | EKG ---
Test Reason : ER INDICATION Blood Pressure : / mmHG Vent. Rate : 075 BPM Atrial Rate : 075 BPM P-R Int : 142 ms QRS Dur : 094 ms QT Int : 408 ms P-R-T Axes : 016 -21 042 degrees QTc Int : 455 ms Normal sinus rhythm Minimal voltage criteria for LVH, may be normal variant Nonspecific ST and T wave abnormality Abnormal ECG Confirmed by DANIEL PERSON M.D. ([id number]), field map editor ANNABELLE CLARKE ([id number]) on 12/21/2017 10:59:27 AM Referred By: CHRISTINE Confirmed By:DANIEL PERSON M.D.
--- NOTE | 2017-12-21 16:02 | CCLSPC ---
SURGEON: Torin Vora M.D. AIRCRAFT RIVETER: None. INDICATION: Right MCA occlusion. PROCEDURES: Conventional angiography with mechanical thrombectomy. ANESTHESIA: General. TECHNIQUE: The patient was brought into the angiogram suite and placed under general anesthesia. She was placed on the table in supine position. Both groins were prepped and draped in the usual sterile fashion. Following an appropriate operative pause, a 5-Mohawk micropuncture set was used to gain access to th e right common femoral artery. Using the Seldinger technique, an 8-Mohawk concentric guide catheter was passed over a 125 cm Amanda 2 guide catheter which was carefully placed within the left internal carotid artery. An AP and lateral angiogram was performed which revealed complete occlusion of the M1 segment of the left middle cerebral artery. A Trevo microcatheter was then deployed and the Trevo device passed one time. After retrieval, there was complete tenriism of flow into the middle ce rebral artery. A control angiogram was then performed which revealed a complete tenriism of flow through all parent arteries on the left side. There was tenriism flow graded at TICI equal to 3. All catheters were then removed. Hemostasis was maintained with manual compression. The procedure came to an end without complication.
== END 2017-12-17 16:30 | disposition expired | DRG 957 ==
LOC: ERS 13:31 → SURG A 16:46 → CCU 12-14 11:26 → SURG A 12-16 11:19
PROVIDERS: ADMIT Surgery; ATTEND Surgery
PROC: 0QSCXZZ Reposition Left Lower Femur, External Approach (ICD-10-PCS; principal; 2017-12-13)
PROC: 03CL3ZZ Extirpation of Matter from Left Internal Carotid Artery, Percutaneous Approach (ICD-10-PCS; 2017-12-13)
PROC: B307ZZZ Plain Radiography of Left Internal Carotid Artery (ICD-10-PCS; 2017-12-13)
PROC: 0QSCXZZ Reposition Left Lower Femur, External Approach (ICD-10-PCS; 2017-12-13)
DX: S72.002A Fracture of unspecified part of neck of left femur, initial encounter for closed fracture (principal); G93.6 Cerebral edema; S06.309A Unspecified focal traumatic brain injury with loss of consciousness of unspecified duration, initial encounter; C78.00 Secondary malignant neoplasm of unspecified lung; N39.0 Urinary tract infection, site not specified; E87.0 Hyperosmolality and hypernatremia; I62.9 Nontraumatic intracranial hemorrhage, unspecified; E87.2 Acidosis; W19.XXXA Unspecified fall, initial encounter; Y93.9 Activity, unspecified; Y92.9 Unspecified place or not applicable; Y99.9 Unspecified external cause status; Z66 Do not resuscitate; R29.727 NIHSS score 27; E87.6 Hypokalemia; E86.0 Dehydration; C67.9 Malignant neoplasm of bladder, unspecified; E87.8 Other disorders of electrolyte and fluid balance, not elsewhere classified; Z51.5 Encounter for palliative care; E83.39 Other disorders of phosphorus metabolism
CPT/HCPCS: 36415; 36416; 36596; 70450; 70496; 70498; 71045; 76000; 80048; 80053; 80061; 80306; 81003; 81015; 82550; 82553; 83735; 84100; 84484; 84703; 85025; 85610; 85730; 87086; 93005; 96365; C1713; C1757; C1769; C1887; G8987-GO-CN; G8988-GO-CM; J0131; J0360; J0690; J1644; J1953; J2001; J2270; J2405; J2704; J3010; J3475; J3480; J7050